=== PATIENT | male | born 1965 | race Caucasian/White ===

== ENCOUNTER 2018-05-23 10:19 | Emergency (ER) | payer BC ==
--- OUTSIDE RECORDS SUMMARY | 2018-05-23 12:22 | XMS REPORT ---
:1965 External Reference #:[id number] Author Organization [facility] 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 Family History Date Family Member(s) Problem(s) Comments Father due to Heart Attack () Social History Type Date Description Comments Lives With 04/27/2018 Occupation physical ed ETOH Use rarely drinks alcohol Smoking smokes weed Recreational Drug Use Marijuana Daily Caffeine mountain dew every 2-3wks Allergies, Adverse Reactions, Alerts Date Description Reaction Status Severity Comments 04/27/2018 NKDA active Medications Medication Date Status Form Strength Qnty SIG Indications Ordering Provider Excedrin Active Tablets 250-250-65m uses prn for Unknown Extra 000 g migraines Strength Vital Signs Date Vital Result Comment 04/27/2018 BP Systolic 131 mmHg BP Diastolic 74 mmHg Body Temperature 98.0 F Heart Rate 83 /min Respiratory Rate 16 /min Height 68 inches 5'8" Weight 208.12 lb BMI (Body Mass Index) 31.6 kg/m2 BSA (Body Surface Area) 2.08 m2 [place] body weight in kilograms 70 O2 % BldC Oximetry 99 % Pain Level 0 Results Test Date Test Result H/L Range Note Urine Dipstick 04/27/2018 Ua Color clear Yellow Ua Clarity yellow Clear Ua Leuko neg Negative Ua Nitrite neg Negative Ua Urobilinogen 3.5 High 0.2 - 1.0 E.U./dL Ua Protein 0.15 High Negative Ua PH 5.5 Low 6.5-7.5 Ua Blood neg Negative Ua Specific Reese 1.030 1.010-1.030 Ua Ketones neg Negative Ua Bilirubin neg Negative Ua Glucose neg Negative Laboratory test finding 02/19/2018 Chol/ HDL Ratio 2.7 ratio Low 4.0-6.7 Cholesterol 154 mg/dL 50-199 HDL 56 mg/dL 29-71 1 LDL (Calc) 84 mg/dL 20-99 2 Triglycerides 70 mg/dL 30-200 VLDL 14 mg/dL 2-29 Comprehensive Metabolic-RL 02/19/2018 A/G Ratio 1.7 Ratio 1.0-2.2 Haylie Egfr >60 >60 3 Albumin 4.7 g/dL 3.6-4.9 Alkaline Phosphatase 70 U/L 24-140 Alt 12 U/L 3-42 Anion Gap 10 mmol/L 5-15 4 Ast 14 U/L 8-42 BUN 20 mg/dL 6-26 Calcium 9.7 mg/dL 8.5-10.2 Carbon Dioxide 27 mmol/L 24-34 Chloride# 106 mmol/L 97-110 5 Creatinine 1.2 mg/dL 0.5-1.4 Globulin 2.7 g/dL 2.0-3.5 Glucose 89 mg/dL 70-105 Non Haylie Egfr >60 >60 6 Potassium 4.2 mmol/L 3.5-5.2 Sodium 143 mmol/L 135-146 7 Total Bilirubin 3.1 mg/dL High 0.1-1.3 8 Total Protein 7.4 g/dL 6.0-8.0 1 Per NCEP ATP III Guidelines: Results lower than 40 mg/dL are suggestive of increased risk for coronary artery disease. Results > or=to 60 mg/dL are considered a negative risk factor. 2 Per NCEP ATP III Guidelines: Normal Population <130 Patients with medical conditions: CHD/DM Optimal: <100 Borderline high: 130-159 High: 160-189 Very high: >189 3 Concerning GFR Guidelines for Americans: Normal function or mild renal disease, if clinically at risk: >/=60 mL/min Moderately decreased: 30-59 Severely decreased: 15-29 Renal failure: <15 4 Updated Reference Range 5 Updated reference range on new analyzer 6 Concerning GFR Guidelines: Normal function or mild renal disease, if clinically at risk: >/=60 mL/min Moderately decreased: 30-59 Severely decreased: 15-29 Renal failure: <15 Glomerular Filtration Rate (GFR) is estimated based on the MDRD equation, which assumes a steady state for creatinine as recommended by the National Kidney Disease Education Program in conjunction with the National Institutes of Health and the National Kidney Foundation. Clinical conditions in which it may be necessary to measure GFR by using clearance methods include extremes of age and body size, severe malnutrition or obesity, diseases of skeletal muscle, paraplegia or quadriplegia, vegetarian diet, rapidly changing kidney function, and calculation of the dose of potentially toxic drugs that are excreted by the kidneys. 7 Updated reference range on new analyzer 8 Specimen Slightly Icteric Procedures Date CPT Code Description Status 03/19/200486486 Aspiration/Injection joint Completed intermediate(wrist/ankle/elbow/olbursa Encounters Type Date Location Provider CPT E/M Dx Office Visit 04/27/2018 2:00p [facility] Nancy Guzman M.D. [id number] N28.1 Plan of Care Future Appointment(s):08/02/2018 1:30 pm - Nancy Guzman M.D. at [id number] - Nancy Guzman M.D.N28.1 Cyst of kidney, acquiredNew Labs:Basic Metabolic PanelNew Xrays:CT, Abdomen, W/ & W/O ContrastComments:I do not feel patient has polycystic kidney disease. I will obtain a CT scan with contrast in 3 months for further evaluation. I reassured the patient that based on the look of the cysts on the noncontrast CT scan I do not think these are malignant.
[2018-05-23 12:28] VITALS: BP 112/67
--- NOTE | 2018-05-23 12:35 | UC ---
UC General HPI - HPI Summary HPI Summary: red and swelling around L middle fingernail since yesterday. poked site with a needle but nothing drained. admits to chewing and picking at nail. - History of Current Complaint Stated Complaint: LEFT MIDDLE FINGER CONCERN Time Seen by Provider: 05/23/18 12:24 Hx Obtained From: Patient Onset/Duration: Gradual Onset Timing: Constant Associated Signs & Symptoms: Positive: Other - no joint pain. Negative: Fever - Allergy/Home Medications Allergies/Adverse Reactions: Allergies Allergy/AdvReac Type Severity Reaction Status Date / Time No Known Allergies Allergy Verified 05/23/18 12:28 PMH/Surg Hx/FS Hx/Imm Hx Previously Healthy: Yes - Family History Known Family History: Positive: Non-Contributory - Social History Occupation: Employed Full-time - Immunization History Vaccination Up to Date: Yes Review of Systems All Other Systems Reviewed And Are Negative: Yes Constitutional: Positive: Negative Skin: Positive: Negative Eyes: Positive: Negative ENT: Positive: Negative Respiratory: Positive: Negative Cardiovascular: Positive: Negative Gastrointestinal: Positive: Negative Genitourinary: Positive: Negative Motor: Positive: Negative Neurovascular: Positive: Negative Musculoskeletal: Positive: Negative Neurological: Positive: Negative Psychological: Positive: Negative Is Patient Immunocompromised?: No Physical Exam Triage Information Reviewed: Yes Appearance: Well-Appearing Vital Signs Reviewed: Yes Eyes: Positive: Conjunctiva Clear ENT: Positive: Normal ENT inspection Neck: Positive: Supple Respiratory: Positive: Lungs clear, Normal breath sounds Cardiovascular: Positive: RRR, No Murmur Abdomen Description: Positive: Nontender, No Organomegaly, Soft Bowel Sounds: Positive: Present Musculoskeletal: Positive: ROM Intact Neurological: Positive: Alert Psychological: Positive: Age Appropriate Behavior Skin Exam: Normal, Other - L middle finger with mild erythema and swelling around nailbed. Digit has full s/v/m function. Course/Dx - Course Course Of Treatment: digit soaked in warm-soapy water. betadine applied and forcep used to push cuticle back but nothing drained. Soaked again in warm soapy water. tolerated well. pt to soak at home plus will add keflex to tx. - Differential Dx - Multi-Symptom Provider Diagnoses: Paronychia L middle finger Discharge - Sign-Out/Discharge Documenting (check all that apply): Patient Departure All imaging exams completed and their final reports reviewed: No Studies - Discharge Plan Condition: Stable Disposition: HOME Prescriptions: Cephalexin CAP* [Keflex CAP*] 500 mg PO TID 7 Days #21 cap Patient Education Materials: Parosakshi (ED) Referrals: Taylor Rico MD [Primary Care Provider] - 5 Days - Billing Disposition and Condition Condition: STABLE Disposition: Home - Attestation Statements Provider Attestation: Per institutional requirements, I have reviewed the chart, however, I was not consulted specifically or made aware of this patient by the midlevel provider. I did not personally evaluate, interact with , or disposition this patient.
== END 2018-05-23 12:52 | disposition home or self-care (01) ==
LOC: UCCORT 10:19
DX: L03.012 Cellulitis of left finger (principal)
CPT/HCPCS: 99212; G0463